=== PATIENT | male | born 1995 | race Two or more races ===

== ENCOUNTER 2020-07-17 05:17 | Inpatient (IN) | payer OTHER ==
[2020-07-17] VITALS (15 sets, daily range): BP systolic 110–132; BP diastolic 51–89
[~2020-07-17] VITALS: Ht 177.8 cm; Wt 99.8 kg
[2020-07-17] MEDS ORDERED: Gelfoam Size TOPIC ONE (06:42)
[2020-07-17] MEDS ORDERED: Vancomycin 1gm vial IVPB ONE (06:42)
[2020-07-17] MEDS ORDERED: Thrombin 5000 units TOPIC ONE (06:42)
[2020-07-17] MEDS ORDERED: Bacitracin 50000 Units Vial ONE (06:43)
[2020-07-17] MEDS ORDERED: HYDROcodone/Acetamin 7.5/325 tab ORAL PRN ×2 (06:45→12:00)
[2020-07-17] MEDS ORDERED: Labetalol 5mg/ml 20ml vial IV PRN (06:45)
[2020-07-17] MEDS ORDERED: Meperidine 25mg/1ml Inj (FOR RIGORS ONLY) IV PRN (06:45)
[2020-07-17] MEDS ORDERED: Ketorolac 30mg Inj IV PRN ×2 (06:45)
[2020-07-17] MEDS ORDERED: Midazolam 2mg/2ml Inj IVP PRN (06:45)
[2020-07-17] MEDS ORDERED: oxyCODONE HCL/Acetaminophen 5/325mg ORAL PRN (06:45)
[2020-07-17] MEDS ORDERED: Metoclopramide 10mg/2ml Inj IVP PRN ×2 (06:45→12:00)
[2020-07-17] MEDS ORDERED: Atropine Sulfate 0.4mg/ml inj IVP PRN (06:45)
[2020-07-17] MEDS ORDERED: DiphenhydrAMINE 50mg/ml Inj IVP PRN (06:45)
[2020-07-17] MEDS ORDERED: HYDROcodone/Acetamin 5/325 tab ORAL PRN ×2 (06:45→12:00)
[2020-07-17] MEDS ORDERED: LORazepam Inj 2mg/ml 1ml IV PRN (06:45)
[2020-07-17] MEDS ORDERED: Hydromorphone 0.5mg/0.5ml inj IVP PRN (06:45)
[2020-07-17] MEDS ORDERED: fentaNYL 100 mcg/2 mL IV PRN (06:45)
[2020-07-17] MEDS ORDERED: Acetaminophen (Non formulary) 100 ML IV ONE (06:45)
[2020-07-17] MEDS ORDERED: LR 1000ml 1,000 ML IVLG SCH (06:45)
--- NOTE | 2020-07-17 06:47 | Anethesia Preoperative Eval ---
Anesthesia Pre-op PMH/ROS General Date of Evaluation: Jul 17, 2020 Time of Evaluation: 07:01 Anesthesiologist: Khris ASA Score: ASA 2 Mallampati Score Class I : Soft palate, uvula, fauces, pillars visible Class II: Soft palate, uvula, fauces visible Class III: Soft palate, base of uvula visible Class IV: Only hard plate visible Mallampati Classification: Class II Surgeon: Josefina Diagnosis: Back Pain Surgical Procedure: L4-5, L5-S1 Microdiscectomy Anesthesia History: none Family History: no anesthesia problems Allergies: Coded Allergies: No Known Allergies (Unverified , 07/15/20) Medications: see eMAR Patient NPO?: Yes Past Medical History Other: obesity - BMI 35 Anesthesia Pre-op Phys. Exam Physician Exam Last Vital Signs Date Time Temp Pulse Resp B/P (MAP) Pulse Ox O2 Delivery O2 Flow Rate FiO2 07/17/20 06:04 Room Air 07/17/20 06:03 98.3 55 18 110/56 (74) 98 Constitutional: NAD Neurologic: CN 2-12 intact Cardiovascular: RRR Respiratory: CTA Gastrointestinal: S/NT/ND Airway Exam Mallampati Score: Class II MO: full ROM: full Teeth: intact Anesthesia Pre-op A/P Risk Assessment & Plan Assessment: ASA 1 Plan: GA, SED, GlideScope Status Change Before Surgery: No Pre-Antibiotics Dru Grams Ancef IV Given Within 1 Hr of Incision: Yes Time Given: 07:21 Lul Pinedo MD Jul 17, 2020 06:47
[2020-07-17] MEDS ORDERED: Lidocaine 1% MPF 10mg/ml 5ml ONE (06:52)
[2020-07-17] MEDS ORDERED: Sodium Chloride 10ml vial INJ ONE (06:52)
[2020-07-17] MEDS ORDERED: fentaNYL 100 mcg/2 mL IV ONE (06:53)
[2020-07-17] MEDS ORDERED: Lidocaine 1% Plain 30 ml INJ ONE (06:54)
[2020-07-17] MEDS ORDERED: Rocuronium Bromide 50mg/5ml Inj IV ONE (06:59)
[2020-07-17] MEDS ORDERED: LR 1000ml ONE (07:00)
[2020-07-17] MEDS ORDERED: ceFAZolin sod 2 GM in NS 55 ML IVPB ONE (07:00)
[2020-07-17] MEDS ORDERED: NS Irrig 1000ml ONE (07:00)
[2020-07-17] MEDS ORDERED: Sterile Water Irrig 1000ml IRRIG ONE (07:00)
[2020-07-17] MEDS ORDERED: propofoL 1,000mg/100ml IV ONE (07:00)
[2020-07-17] MEDS ORDERED: Ketamine 500mg/10ml vial ONE (07:07)
--- NOTE | 2020-07-17 07:17 | Immediate Post-Op Evaluation ---
Immediate Post-Op Evalulation Immediate Post-Op Evalulation Procedure: L4-5, L5-S1 Microdiscectomy Date of Evaluation: Jul 17, 2020 Time of Evaluation: 09:39 IV Fluids: 800 LR Blood Products: 0 Estimated Blood Loss: 40 Urinary Output: 300 Blood Pressure Systolic: 127 Blood Pressure Diastolic: 85 Pulse Rate: 80 Respiratory Rate: 16 O2 Sat by Pulse Oximetry: 100 Temperature (Fahrenheit): 98.3 Pain Score (1-10): 2 Nausea: No Vomiting: No Complications 0 Patient Status: awake, reacts, patent, extubated, none Hydration Status: adequate Dru Grams Ancef IV Given Within 1 Hr of Incision: Yes Time Given: 07:21 Lul Pinedo MD Jul 17, 2020 07:17
--- NOTE | 2020-07-17 07:18 | 48 Hour Post Anesthesia Eval ---
Post Anesthesia Evaluation Procedure: L4-5, L5-S1 Microdiscectomy Date of Evaluation: Jul 17, 2020 Time of Evaluation: 11:43 Blood Pressure Systolic: 121 0: 67 Pulse Rate: 64 Respiratory Rate: 18 Temperature (Fahrenheit): 98.4 O2 Sat by Pulse Oximetry: 100 Airway: patent Nausea: No Vomiting: No Pain Intensity: 2 Hydration Status: adequate Cardiopulmonary Status: Stable Mental Status/LOC: patient returned to baseline Follow-up Care/Observations: 0 Post-Anesthesia Complications: 0 Follow-up care needed: N/A Lul Pinedo MD Jul 17, 2020 07:18
--- NOTE | 2020-07-17 07:19 | Pre-Procedure Note/Attestation ---
Pre-Procedure Note/Attestation Complete Prior to Procedure Planned Procedure: left Procedure Narrative: left sided Lumbar 45 and 5S1 microdiscectomy hemilaminotomy and foraminotomy Indications for Procedure Pre-Operative Diagnosis: L45 and L5S1 herniation Attestation I attest that I discussed the nature of the procedure; its benefits; risks and complications; and alternatives (and the risks and benefits of such alternatives), prior to the procedure, with the patient (or the patient's legal wine sales representative). I attest that, if there was a reasonable possibility of needing a blood transfusion, the patient (or the patient's legal wine sales representative) was given the [facility] standardized written summary, pursuant to the [place] Blood Safety Act ([place] Health and Safety Code # 1645, as amended). I attest that I re-evaluated the patient just prior to the surgery and that there has been no change in the patient's H&P, except as documented below: Joni Rocha MD Jul 17, 2020 07:19
--- NOTE | 2020-07-17 07:20 | Brief Operative Note ---
Immediate Post Operative Note Operative Note Chief Complaint: leg pain and back pain Pre-op Diagnosis: L45 and L5S1 herniation Procedure: left sided Lumbar 45 and 5S1 microdiscectomy hemilaminotomy and foraminotomy Post-op Diagnosis: same as pre-op Findings: consistent w/pre-op dx studies Surgeon: Josefina Cnc Technician: Ravinder Anesthesiologist: Khris Anesthesia: general Specimen: none Complications: none Condition: stable Fluids: IVF Estimated Blood Loss: minimal Drains: none Implant(s) used?: No Joni Rocha MD Jul 17, 2020 07:20
[2020-07-17] MEDS: Ropivacaine 5mg/ml Vial 30ml INJ ONE ×2 (07:30→08:49)
[2020-07-17] MEDS ORDERED: Ropivacaine 5mg/ml Vial 30ml INJ ONE (08:42)
[2020-07-17] MEDS ORDERED: Neostigmine 1mg/ml 10ml Inj ONE (08:48)
[2020-07-17] MEDS ORDERED: Glycopyrrolate 0.2mg/ml 1ml Vial ONE (08:48)
--- NOTE | 2020-07-17 11:00 | NUR ---
NURSE NOTES: RECIEVED PT. FROM RR ACCOPANIED BY NSG . STAFF AWAKE AND ALERT NO S/S OF DISTRESS NOTED @ THIS TIME. S/P L4-L5 MICRODISCECTOMY.DRESSING DRY AND INTACT W/ ICE PACK INPLACED.V/S TAKEN AND RECORDED.PLAN OF CARE DISCUSSED,VERBALIZES UNDERSTANDING.WILL CONTINUE TO MONITOR.
[2020-07-17] MEDS ORDERED: Morphine Sulfate 4mg/ml Inj (IV USE ONLY) IV PRN (11:30)
[2020-07-17] MEDS ORDERED: HYDROmorphone 1mg/ml Carpuject IVP PRN (11:30)
[2020-07-17] MEDS ORDERED: Morphine Sulfate 2mg/ml Inj(IV/IM USE ONLY) IV PRN (11:30)
[2020-07-17] MEDS ORDERED: Milk of Magnesia 30ml Ud ORAL PRN (12:00)
--- NOTE | 2020-07-17 12:00 | NUR ---
NURSE NOTES: Wallet given to Destini (Mother).
[2020-07-17] MEDS: NS w/KCl 20mEq 1000ml 1,000 ML IV SCH ×2 (12:12→22:50)
[2020-07-17] MEDS ORDERED: Chloraseptic Spray 20mL Bottle ORAL PRN (12:30)
--- NOTE | 2020-07-17 13:34 | NUR ---
P.T Note: P.T evaluation completed and tx initiated per spinal protocol. Please refer to P.T evaluation for current functional status.
--- NOTE | 2020-07-17 14:53 | Diagnostic Imaging Report ---
INDICATION: Pain, intraoperative TECHNIQUE: Intraoperative imaging Fluoroscopy time: 5.6 seconds Total dose: 0.53473 mGym2 Total number of images: 1 COMPARISON: None FINDINGS: Intraoperative images demonstrate localizer tool posterior to the lower lumbar spine IMPRESSION: Intraoperative imaging, as described
[2020-07-17] MEDS: ceFAZolin sod 1 GM in D5W 55 ML IV SCH ×2 (15:10→22:50)
[2020-07-17] MEDS: Morphine Sulfate 4mg/ml Inj (IV USE ONLY) IV PRN ×2 (17:48→22:50)
[2020-07-17] MEDS: Docusate 100mg cap ORAL SCH (18:26)
--- NOTE | 2020-07-17 19:43 | NUR ---
HAND-OFF: Report given to SHILO DENISE.
--- NOTE | 2020-07-17 19:45 | NUR ---
NURSE NOTES: Received report from Shaniqua DENISE. Patient is awake, alert, and oriented x4. On room air, breathing is even and unlabored. Complains of surgical pain 7/10. IV on right hand intact and patent with no bleeding noted. IVF running as ordered. Bed low and locked. Call light within reach.
--- NOTE | 2020-07-17 23:30 | Operative Note - Dictated ---
DATE OF OPERATION: 07/17/2020 SURGEON: Joni Rocha MD CLIENT SERVICES SPECIALIST SURGEON: IRIS Gordon ANESTHESIOLOGIST: Lul Pinedo MD ANESTHESIA: General endotracheal anesthesia. PREOPERATIVE DIAGNOSES: 1. Intractable back pain. 2. Intractable leg pain. 3. Worsening radiculopathy. 4. Weakness. 5. Herniated nucleus pulposus, L4-L5 and L5-S1 herniation. 6. Neural foraminal stenosis, L4-L5 and L5-S1. POSTOPERATIVE DIAGNOSES: 1. Intractable back pain. 2. Intractable leg pain. 3. Worsening radiculopathy. 4. Weakness. 5. Herniated nucleus pulposus, L4-L5 and L5-S1 herniation. 6. Neural foraminal stenosis, L4-L5 and L5-S1. PROCEDURES PERFORMED: 1. Left-sided L4-L5 and L5-S1 microdiscectomy. 2. Left-sided hemilaminotomy, foraminotomy, and medial facetectomy. 3. Left-sided L4-L5 and L5-S1 neural foraminotomy through a transpedicular intraforaminal approach. 4. Use of intraoperative microscope. 5. Supervision and interpretation of intraoperative fluoroscopy. 6. Supervision and interpretation of somatosensory-evoked potential and free-running EMG monitoring. ESTIMATED BLOOD LOSS: Less than 100 mL. COMPLICATIONS: None. INDICATIONS FOR THE PROCEDURE: The patient presents for intractable back pain and radiculopathy. The patient tried and failed a prolonged course of conservative management, including but not limited to chiropractic therapy, physical therapy, nonsteroidal anti-inflammatory drugs, medication, ice packs as well as epidural injection. Despite these therapies, the patient still developed recalcitrant pain and elected for definitive management in the form of left-sided L4-L5 and L5-S1 microdiscectomy; left-sided hemilaminotomy, foraminotomy, and medial facetectomy; left-sided L4-L5 and L5-S1 neural foraminotomy through a transpedicular intraforaminal approach. CONSENT: We had a long discussion with the patient regarding definitive surgical treatment options. The patient's MRI demonstrated herniated nucleus pulposus at L4-L5 and L5-S1 herniation; and neural foraminal stenosis at L4-L5 and L5-S1, and as a result, I felt the patient would benefit from the discectomy as well as neural foraminotomy at this level. We had a long discussion with the patient regarding the risks, alternatives, and benefits of surgery. Our description of the risks included a discussion in person as well as a signed consent, which detailed all pertinent risks and the procedure itself. Briefly, our discussion included but was not limited to infection, bleeding, pseudarthrosis, spinal cord injury, neurovascular injury, dural tear, CSF leak, neuropathy, paralysis, permanent weakness/drop foot, paresthesias blindness, palsy, and weakness. The patient understood there may be a need for revision surgery or additional procedures. Approach-related complications including dysphonia, dysphagia, blindness, permanent vocal cord and neural injury, hematoma, swallowing and breathing difficulty. Medical complications including liver, kidney, shock, and cardiopulmonary failure. Anesthesia complications including , swelling. Damage to the musculature, larynx (voice injury or loss),esophagus (throat), trachea, blood vessels and muscles (muscular sprain) and lungs (pneumothorax) during this surgical procedure. Injury to deeper structures may be temporary or permanent. The patient understood these and elected to proceed. A written and verbal consent was given. We discussed the pros and cons of all the alternatives. We discussed the uncertainties associated with the decision. Afterwards, I assessed the patient's understanding and explored their preferences. All questions were answered and no guarantees were given. Medical clearance was obtained prior to surgery INTRAOPERATIVE FINDINGS: L4-L5; at L4-L5, after performing the hemilaminotomy and decompression, there was a significant component of neural foraminal stenosis appreciated. This was found to be secondary to a disc herniation after mobilization with a nerve root retractor. The disc herniation was traced back to its source and near the posterior longitudinal ligament, I noted there to be fresh torn edges of PLL. The tear of the PLL was nearly vertical, approximately 10 to 15 degrees cephalad to caudad, and in line with the PLL fibers themselves. The edges appeared fresh. The disc was mobilized with a combination of Microsect curette and upon resection of the disc, it was found to be soft and spongy, not desiccated or calcified in any way leading me to believe this was more acute in nature. L5-S1; at L5-S1, our intraoperative findings included a significant component of neural foraminal stenosis. This was traced back to its source with a nerve root retractor and we found there to be a tear of the posterior longitudinal ligament, which was approximately 10 degrees cephalad to caudad. Through this tear, there were large nuclear pulposus fragments, which had been the source of the neural foraminal encroachment. The edges of the tear appeared fresh. The disc itself was soft and spongy, did not appear calcified or crumbled or collapsed in any way leading me to believe this was more acute in nature. DESCRIPTION OF PROCEDURE: Under the benefit of general endotracheal anesthesia and with the assistance of the entire operative team, the patient was moved from the rbonita onto the operative table in the prone position on a Arsenio frame. The head was secured and positioned appropriately. Bilateral arms were secured with Gel Pads and foam and all bony prominences were padded. The bilateral lower extremity SCD and KAMLESH hose were placed for DVT prophylaxis. A surgical timeout was called, which corroborated our planned procedure. Preoperative antibiotics were administered within 30 minutes of the incision for prophylaxis. Decadron was given for preoperative steroids. Using lateral radiography, the operative levels were delineated. An incision was marked based on our interpretation of lateral radiography and afterwards, the body was prepped and draped in the usual sterile manner. The family was notified that we were ready to commence surgery and were called in the waiting room hourly for updates An incision was based on our lateral fluoroscopic image to center the incision at the L5-S1 interspace. The wound was prepped and draped in the usual sterile fashion. Using a scalpel, a midline incision was taken down through the skin and subcutaneous tissues until the overlying hemilaminae of L4-L5 and L5-S1 were visualized. Next, using meticulous hemostasis, hemilamotomies were dissected and retractors were placed. Using a [place] dental, we confirmed placement at the L4-L5 and L5-S1 interspace. We next turned our attention to our decompression. A standard hemilaminotomy, foraminotomy, and medial facetectomy was performed at each level in standard fashion using a Midas-Nehemiah type AM8 drill bit, straight and angled curettage, and [place] 4 rongeurs until the lateral thecal sac margin and traversing nerve root was visualized. All remainders of the ligamentum flavum and lateral bony margins were resected in total with angled curettage and [place] 4 rongeurs until the lateral thecal sac margin and traversing nerve root was visualized and decompressed. We next turned our attention toward our L4-L5 and L5-S1 microdiscectomy on the left side. A [place] 4 was used to gently mobilize the thecal sac medially and this was held retracted with a bayonetted nerve root retractor. It was at this point that we noted a large broad-based disc protrusion with encroachment dorsally on the thecal sac neural foraminal contents. A bayonet and nerve root retractor was then placed carefully to retract the thecal sac and a discectomy was performed using a combination of a long-handled 15 blade scalpel, downgoing and straight pituitaries, and downgoing curettage. Afterwards, the disc space was irrigated twice with 20 mL of antibiotic-impregnated saline. All loose and free-floating disc fragments were carefully resected with a narrow pituitary. Having been satisfied with our decompression after our discectomy of all neural elements, we next turned our attention to our neural foraminoplasty/foraminotomy. This was performed through a transpedicular intraforaminal approach using an access probe followed by a neuro-check device, which confirmed ventral placement of our nerve root. Once we confirmed we were safe, we next turned our attention towards placement of our size 10 file under direct microscopic visualization and under lateral fluoroscopy. Using pre and post reciprocation imaging, we were able to visualize our direct decompression given the reciprocation allowed for re-creation of the neural foraminal arch at L4-L5 and L5-S1. Afterwards, hemostasis was obtained with 60 mL of antibiotic-impregnated saline followed by FloSeal and Gelfoam. After sponge and needle count were found to be correct, we next turned our attention to closure. Closure consisted of 1-0 Vicryl in standard interrupted fashion. Zosyn was placed deep to the fascia and superficial to the fascia for antibiotic prophylaxis. Skin closure was performed with 2-0 Vicryl in interrupted fashion followed by a running Monocryl for the skin. Final dressings consisted of Dermabond for the superficial skin, Telfa, and Tegaderm. The patient tolerated the procedure well. The patient was extubated after the conclusion of surgery without incident. We discussed the findings of the surgery with the family upon completion of the case. At this point, the patient will be transferred to the spine floor for further observation. Joni Rocha M.D. DR: Rudy JOB#: [id number] CC:
[2020-07-18] VITALS: BP 122/55
[2020-07-18 04:00] VITALS: BP 111/47
[2020-07-18] MEDS: ceFAZolin sod 1 GM in D5W 55 ML IV SCH (06:06)
[2020-07-18] MEDS: HYDROcodone/Acetamin 7.5/325 tab ORAL PRN ×2 (06:49→10:20)
--- NOTE | 2020-07-18 07:24 | NUR ---
NURSE HAND-OFF: Important Events on Shift: Pain management Patient Status: Stable Diet: Regular Pending Orders: [] Pending Results/Labs:[] Pending MD notification:[] Latest Vital Signs: Temperature 97.2 , Pulse 53 , B/P 111 /47 , Respiratory Rate 18 , O2 SAT 98 , Room Air, O2 Flow Rate 6 . Vital Sign Comment: VS stable Latest Oh Fall Score: 35 Fall Risk: Medium Risk Safety Measures: Call light Within Reach, Bed Alarm , Side Rails Side Rails x2, Bed position Low and Locked. Fall Precautions: Patient Fall Education Report given to Christin DENISE.
--- NOTE | 2020-07-18 07:30 | NUR ---
NURSE NOTES: Patient is in bed awake and able to verbalize needs. Stable. Breathing is even and unlabored. Patient instructed to use call light for assistance, verbalized understanding. Patient is in bed in locked and lowest position with call light within reach. All needs met at this time. Will continue to monitor.
[2020-07-18 08:00] VITALS: BP 123/54
[2020-07-18] MEDS: NS w/KCl 20mEq 1000ml 1,000 ML IV SCH (08:17)
[2020-07-18] MEDS: Docusate 100mg cap ORAL SCH (08:17)
--- NOTE | 2020-07-18 10:45 | NUR ---
NURSE NOTES: Made rounds with Dr. Rocha. Patient assessed by surgeon and is cleared for discharge. Surgical dressing c/d/i. Patient given thorough discharge instructions and post op teaching by surgeon. All questions and concerns addressed by surgeon. Teaching reinforced by RN. Patient will get prescription filled at home pharmacy.
--- NOTE | 2020-07-18 11:16 | NUR ---
NURSE NOTES: Patient up and ambulating with PT. Tolerating well.
[2020-07-18 12:00] VITALS: BP 121/68
[2020-07-18] MEDS ORDERED: Tubing IV Secondary IV ONE (14:44)
--- NOTE | 2020-07-18 14:45 | NUR ---
NURSE NOTES: Patient discharged home as ordered. Stable. All belongings given to patient. No IV access. Surgical dressing c/d/i. Patient assisted into car without incident.
--- NOTE | 2020-07-20 11:20 | Discharge Summary ---
Discharge Summary Discharge Summary _ Date of admission: 07/17/2020 Date of discharge: 07/18/[address] Pennie Garcia History of Present Illness and Brief Hospital Course Mr. Bar is a 25-year-old male with past medical history of herniated nucleus pulposis and L4-L5 and L5-S1 and associated back pain, who presented to the hosp ital for a scheduled left-sided lumbar L4-L5 and L5-S1 microdiscectomy, hemilaminotomy and foraminotomy. The nature of the procedure, its benefits, risks and complications, and alternatives were discussed with the patient prior to the procedure. He reported to have no family history of anesthesia problems, or known allergies. Patient was NPO. His cranial nerves II to XII were intact before the procedure. Procedures performed include left-sided L4-L5 and L5-S1 microdiscectomy, neural foraminotomies through a transpedicular infra foraminal approach, left-sided hemilaminotomy, foraminotomy, and medial facetectomy. Patient tolerated the procedure well. Patient was extubated after the conclusion of surgery without incident. Patient was transferred to the spine floor for further observation. After observation period, patient was medically stable for discharge. Patient began ambulating without problems. On the day of discharge, he was mobilizing well, and pain well controlled. Patient was discharged home on 07/18/2020. Consultants: None Discharge Condition Stable, ambulating Discharge Activity Advance as tolerated Discharge Diet Advance as tolerated Final diagnoses Intractable back pain, intractable leg pain, worsening radiculopathy History of herniated nucleus pulposus, L4-L5 and L5-S1 herniation Neural foraminal stenosis, L4-L5 and L5-S1 Status post left-sided L4-L5 and L5-S1 microdiscectomy Status post hemilaminotomy, foraminotomy, and medial facetectomy Status post left-sided L4-L5 and L5-S1 neural foraminotomy through a transpedicular intraforaminal approach I have been assigned to dictate discharge summary for this account. I was not involved in the patient's management Andrew Wu Jul 20, 2020 11:19
== END 2020-07-18 14:45 | disposition home or self-care (01) | DRG 520 ==
LOC: SDSOVERFLO 05:17 → 3E 10:45
DX: M51.16 Intervertebral disc disorders with radiculopathy, lumbar region (principal); M51.17 Intervertebral disc disorders with radiculopathy, lumbosacral region; M48.061 Spinal stenosis, lumbar region without neurogenic claudication; M48.07 Spinal stenosis, lumbosacral region; Z68.35 Body mass index [BMI] 35.0-35.9, adult
CPT/HCPCS: 36415; 72020; 76000; 86850; 86900; 86901; 87081; 94003; 94150; J2180; J2405; J2710; U0002